=== PATIENT | female | born 1995 | race Hispanic/Latino ===

== ENCOUNTER 2019-02-13 13:10 | Observation (INO) | payer OTHER, SELFPAY ==
--- NOTE | 2019-02-13 14:39 | P.TNLD_ITS ---
Visit Information Visit Information Date of evaluation: 02/13/19 On-call OB Provider: Lilo Dominguez Reason for Evaluation: Yes rupture of membranes Comments/Additional reasons for admission: Patient getting care at [facility] in [place], concerned she may have ruptured membranes at 23 weeks 2 days Vital Signs Vital Signs: Blood pressure 104/61, pulse of 89 Evaluation Evaluation Baseline heart rate: 145 Variability: Moderate (11-25) monitor accelerations: Present monitor decelerations: Absent Contraction Frequency (minutes): 0 Non-invasive Membranes Rupture Test: negative Diagnosis, Plan/Disposition Final Diagnosis (1) Vaginal discharge during in second trimester: Current Visit: Yes Status: Acute Plan/Disposition Plan: Patient reassured that she did not rupture membranes. Follow-up with her normal OB doctor OB Disposition: home
== END 2019-02-13 14:15 | disposition home or self-care (01) ==
PROVIDERS: Admitting Provider Specialist; Visit Provider Specialist
DX: O26.892 Other specified pregnancy related conditions, second trimester (principal); Z3A.23 23 weeks gestation of pregnancy
CPT/HCPCS: 59025; 59050; 84112; G0378; G0379